=== PATIENT | female | born 1970 | race Caucasian/White ===

== ENCOUNTER 2021-12-31 07:42 | Emergency (ER) | payer MEDICAID, SELFPAY ==
[2021-12-31 07:43] VITALS: BP 139/96; PULSE 88; RESP 18; TEMP 36.6; O2SAT 100; BMI 21.6
--- NOTE | 2021-12-31 08:06 | EDS_ITS ---
HPI HPI - GI History of Present Illness Chief Complaint: Nausea/Vomiting Informant: patient Abdominal Pain/Flank Pain Onset: Yesterday Context: Gradual Onset Timing: Continuous Quality: - (Squeezing) Location: Epigastric, RUQ and LUQ Worsened by: Food Relieved by: Nothing Nausea/Vomiting/Emesis GI Symptom: Positive for Nausea and Vomiting Quality: Positive for Nonbilious; Negative for Blood streaks, Coffee ground or Hematemesis Severity: Severe Diarrhea/Melena/Hematochezia GI Symptom: Positive for Diarrhea; Negative for Melena or Hematochezia Associated Symptoms Associated Symptoms: Negative for Dysuria, Frequency or Hematuria Narrative Narrative: Patient presents with abdominal pain, nausea, and vomiting that began yesterday. Patient states she has had some abdominal pain over the last few weeks but it became worse last evening. Patient states it is over the epigastric area and upper abdomen. Patient states it feels like someone is squeezing her intestines. Patient states it is worse whenever she tries to eat anything. Patient admits to nausea and vomiting. Patient denies any hematemesis or coffee-ground emesis. Patient admits to diarrhea but denies any melena or hematochezia. Patient denies any dysuria, hematuria, or urinary frequency. Patient denies any radiation into her back. [facility] Medical History Anxiety Bipolar 1 disorder Migraine Panic attack PTSD (post-traumatic stress disorder) Home Medications alprazolam 0.5 mg tablet (Xanax) 0.5 mg PO TID PRN Anxiety 12/31/21 [History Last Taken Unknown] gwitoxpqfv-ekcokxzeyixbr-hlmudiko 50 mg-325 mg-40 mg tablet 2 tab PO Q4H PRN Migraine Headache 12/31/21 [History Last Taken Unknown] cariprazine 1.5 mg capsule (Vraylar) 1.5 mg PO DAILY 12/31/21 [History Last Taken Unknown] fluoxetine 20 mg capsule (Prozac) 20 mg PO DAILY 12/31/21 [History Last Taken Unknown] lamotrigine 150 mg tablet (Lamictal) 150 mg PO DAILY 12/31/21 [History Last Taken Unknown] omeprazole 20 mg capsule,delayed release 20 mg PO DAILY #30 CAPSULES 12/31/21 [Rx Last Taken Unknown] trazodone 100 mg tablet 200 mg PO QHS 12/31/21 [History Last Taken Unknown] Allergy/AdvReac Type Severity Reaction Status Date / Time No Known Allergies Allergy Verified 12/31/21 07:46 Family History (Updated 12/31/21 @ 07:57 by Jimena Barcenas) Other Diabetes Hypertension Surgical History no surgical history no surgical history Social History Smoking Status: Current every day smoker tobacco type: e-cigarettes ROS ROS ED Constitutional Constitutional ED: Denies chills or fever(s) Eyes Eyes: Denies blurry vision or change in vision ENT ENT ED: Denies rhinorrhea or sore throat Cardiovascular Cardiovascular: Denies chest pain or palpitations Respiratory/Chest Respiratory/Chest: Denies cough or dyspnea Gastrointestinal Gastrointestinal: Reports abdominal pain, diarrhea, nausea and vomiting Genitourinary Genitourinary ED: Denies dysuria or hematuria Musculoskeletal Musculoskeletal: Denies back pain or neck pain Integumentary Denies abscess or rash Neurologic Neurologic: Denies headache(s) or weakness Allergic/Immunologic Allergic/Immunologic ED: Denies mouth swelling or urticaria EXAM Physical Exam Const Vital Signs: 12/31/21 07:43 12/31/21 10:34 Temperature 97.9 F Temperature Source Temporal Pulse Rate 88 68 Respiratory Rate 18 16 Blood Pressure 139/96 H 149/79 H Blood Pressure Mean 110 102 Pulse Ox 100 100 Oxygen Delivery Method Room Air Room Air Positive well nourished and well developed General Appearance ED: well developed HEENT Reports moist mucous membranes Neck supple and no JVD Resp normal respiratory effort and clear to auscultation bilaterally Cardio regular rate, regular rhythm and no murmurs GI normal to inspection, nondistended, normoactive bowel sounds Palpation: soft and tender epigastric, LUQ and RUQ; Negative for guarding or rebound tenderness present Extremity normal to inspection General Extremety ED: Negative for edema or tenderness General Extremity: Negative for edema Neuro oriented x3, CN's II-XII intact bilaterally and no sensory deficits noted Sensorium / Orientation: alert Motor Exam: strength 5/5 throughout Psych mental status grossly normal Skin no rashes or lesions noted MDM MDM MDM Narrative Medical decision making narrative: Patient was given IV fluids, morphine, and Zofran. CBC shows hemoglobin of 16.0 and hematocrit of 48.7. Comprehensive metabolic profile shows a creatinine of 1.06. There are no prior labs for comparison. Lactate was slightly elevated at 2.4. Urinalysis does not show any evidence of urinary tract infection or hematuria. Lipase was normal. CT scan of the abdomen and pelvis was obtained. There is no acute abnormality noted. This was interpreted by the radiologist and reviewed by myself. Patient is feeling better on reevaluation. Patient was advised of her findings. Patient was given a prescription for Prilosec. Patient was instructed to start with a bland diet and advance as tolerated. Patient was instructed to follow-up with her primary care physician in 3 to 5 days for reevaluation. Patient was instructed drink plenty of fluids. Patient understood and was agreeable with the plan. All questions were answered. Lab Data Attestation: I reviewed the patient's lab results. Labs: Laboratory Results - last 24 hr 12/31/21 12/31/21 12/31/21 07:55 07:55 08:15 WBC 6.9 RBC 5.14 Hgb 16.0 H Hct 48.7 H MCV 94.7 MCH 31.1 MCHC 32.9 RDW Std Deviation 43.8 RDW Coeff of Aiden 12.6 Plt Count 308 MPV 9.5 Immature Gran % (Auto) 0.400 Neut % (Auto) 67.7 Lymph % (Auto) 24.8 [place] % (Auto) 4.2 Eos % (Auto) 2.3 Baso % (Auto) 0.6 Absolute Neuts (auto) 4.6 Absolute Lymphs (auto) 1.70 Nucleated RBC % 0 Sodium 138 Potassium 3.4 L Chloride 101 Carbon Dioxide 29.0 Anion Gap 8 BUN 7 Creatinine 1.06 H Estim Creat Clear Calc 57.77 Est GFR (MDRD) Af Amer 71 Est GFR (MDRD) Non-Af 59 L BUN/Creatinine Ratio 6.6 L Glucose 143 H Lactic Acid 2.4 H* Calcium 10.2 H Total Bilirubin 0.50 AST 17 ALT 28 Alkaline Phosphatase 80 Total Protein 8.6 H Albumin 4.8 Globulin 3.8 Albumin/Globulin Ratio 1.3 Lipase 130 Urine Color Urine Clarity Urine pH Ur Specific Sigel Urine Protein Urine Glucose (UA) Urine Ketones Urine Occult Blood Urine Nitrite Urine Bilirubin Urine Urobilinogen Ur Leukocyte Esterase Urine RBC Urine WBC Ur Squamous Epith Cells Urine Bacteria Urine Mucus 09/11/22 09:15 WBC RBC Hgb Hct MCV MCH MCHC RDW Std Deviation RDW Coeff of Aiden Plt Count MPV Immature Gran % (Auto) Neut % (Auto) Lymph % (Auto) [place] % (Auto) Eos % (Auto) Baso % (Auto) Absolute Neuts (auto) Absolute Lymphs (auto) Nucleated RBC % Sodium Potassium Chloride Carbon Dioxide Anion Gap BUN Creatinine Estim Creat Clear Calc Est GFR (MDRD) Af Amer Est GFR (MDRD) Non-Af BUN/Creatinine Ratio Glucose Lactic Acid Calcium Total Bilirubin AST ALT Alkaline Phosphatase Total Protein Albumin Globulin Albumin/Globulin Ratio Lipase Urine Color Yellow Urine Clarity Clear Urine pH 6.5 Ur Specific Sigel 1.010 Urine Protein 30 H Urine Glucose (UA) Normal Urine Ketones Negative Urine Occult Blood 25 H Urine Nitrite Negative Urine Bilirubin Negative Urine Urobilinogen Normal Ur Leukocyte Esterase 25 H Urine RBC 0 SEEN Urine WBC 0 SEEN Ur Squamous Epith Cells 0 SEEN Urine Bacteria 0 SEEN Urine Mucus 0 SEEN Radiography Diagnostic Testing: Clinical Impression(s) from Imaging Studies Abdomen/Pelvis CT 12/31/21 08:09 IMPRESSION: No acute intra-abdominal process. Electronically Signed: Tonya Mendoza MD at 10:37 EDT , Discharge Plan Triage Chief Complaint: Nausea/Vomiting ED Provider: Vito Saavedra Dx/Rx/DC Orders Clinical Impression: Abdominal pain Instructions: ED Abdominal Pain Unkn Cause Fem Prescriptions: New omeprazole [omeprazole] 20 mg capsule,delayed release(DR/EC) 20 mg PO DAILY Qty: 30 0RF No Action lamotrigine [Lamictal] 150 mg Tablet 150 mg PO DAILY alprazolam [Xanax] 0.5 mg Tablet 0.5 mg PO TID PRN (Reason: Anxiety) trazodone 100 mg Tablet 200 mg PO QHS fluoxetine [Prozac] 20 mg Capsule 20 mg PO DAILY Vraylar 1.5 mg Capsule 1.5 mg PO DAILY vflyplqiim-ljrwfvukywxpi-oztt [Fioricet] 50-325-40 mg Tablet 2 tab PO Q4H PRN (Reason: Migraine Headache) Rx Instructions: do not exceed 6 tabs per 24 hrs Primary Care Provider: Care Physician,No Primary Referrals: Francisco Agarwal MD [Med Staff - Project Portfolio Analyst] - 3-5 Days NOT,DEFINED [Non-Staff] - Disposition Disposition: Home, Self Care
--- NOTE | 2021-12-31 08:09 | CT_ITS ---
STUDY: CT ABDOMEN AND PELVIS WITH CONTRAST REASON FOR EXAM: Female, 51 years old. Abdominal pain -- IV PO Contrast RADIATION DOSAGE (If Supplied By Facility): CTDIvol = ( 14.66 ) mGy, DLP = ( 582.99 ) mGycm TECHNIQUE: Transaxial images were obtained from the dome of the diaphragm to the symphysis pubis without oral contrast. Gastrografin and amp; 100mL Isovue 370 was administered. Sagittal and coronal images were reconstructed. Individualized dose optimization techniques were used for this CT. COMPARISON: None. FINDINGS: The visualized lung bases are unremarkable. The visualized portions of the heart are within normal limits. There is a low-attenuation focus within segment 4 the liver adjacent to the falciform ligament consistent with focal fat. Normal gallbladder and extrahepatic biliary system. There is a too small to characterize low-attenuation focus within the spleen which may reflect a cyst or hemangioma. Normal pancreas. Normal bilateral adrenal glands. Normal right kidney. Normal left kidney. Normal visualized stomach. Normal small intestine. There are scattered diverticula arising from the colon. The appendix is visualized and appears normal. Normal abdominal aorta. Normal inferior vena cava. Normal retroperitoneum. Normal urinary bladder. Normal abdominal wall. Normal osseous structures. CT/Abdomen/Pelvis WITH Contrast IMPRESSION: No acute intra-abdominal process. Electronically Signed: Tonya Mendoza MD at 10:37 EDT ,
[2021-12-31] MEDS: Ondansetron 4 MG/2 ML Vial IV (08:15)
[2021-12-31] MEDS: Morphine 4 MG/ML Syringe IV (08:15)
[2021-12-31] MEDS: 0.9% Normal Saline 1,000 ML 1000 ML IV (08:16)
[2021-12-31 08:26] LABS: Absolute Neutrophil Count 4.6 X10^3/uL (2.0-7.7); Basophil# 0.04 X10^3/uL; Basophil% 0.6 % (0-1); Eosinophil# 0.16 X10^3/uL; Eosinophils% 2.3 % (0-5); Hematocrit 48.7 % (37-47); Lymphocyte % 24.8 % (19-41); Mean Corp Hgb Conc 32.9 g/dL (32-36); Mean Corpuscular Hgb 31.1 pg (27.0-32.0); Mean Corpuscular Volume 94.7 fL (81-99); Mean Platelet Vol. 9.5 fl (6.2-12.0); Monocyte# 0.29 X10^3/uL; Monocyte% 4.2 % (0-10); NRBC Flagged by Analyzer 0 % (0-5); Neutrophil # 4.63 X10^3/uL (2.7-7.7); Neutrophil % 67.7 % (47-70); Platelet Count 308 K/mm3 (150-450); RBC Distribution Width CV 12.6 % (11.6-14.6); RBC Distribution Width SD 43.8 fl (35.1-43.9); Red Blood Count 5.14 M/mm3 (4.2-5.4); White Blood Count 6.9 K/mm3 (4.4-11.0)
[2021-12-31 08:34] LABS: ALB/GLOB Ratio 1.3 RATIO (0.9-2.4); AST(SGOT) 17 U/L (15-37); Alanine Aminotransfer ALT/SGPT 28 U/L (13-56); Albumin, Serum 4.8 g/dL (3.2-5.0); Alkaline Phosphatase 80 U/L (45-117); Anion Gap 8 (5-15); BUN 7 mg/dL (7-18); BUN/Creat Ratio 6.6 RATIO (10-20); Calcium,Total 10.2 mg/dL (8.5-10.1); Chloride 101 mmol/L (98-107); Creatinine, Serum 1.06 mg/dL (0.55-1.02); EST Glomerular Filtration Rate 59 mL/min (>60); Est Glom Filt Rate - Afr Amer 71 mL/min (>60); Estimated Creatinine Clearance 57.77 ml/min; Globulin 3.8 g/dL (2.2-4.2); Glucose 143 mg/dL (74-106); Lipase 130 U/L (73-393); Potassium 3.4 mmol/L (3.5-5.1); Protein, Total 8.6 g/dL (6.4-8.2); Sodium Level 138 mmol/L (136-145)
[2021-12-31 09:11] LABS: Lactic Acid 2.4 mmol/L (0.4-1.9)
[2021-12-31 09:26] LABS: Bacteria 0 SEEN /hpf (None Seen); Mucous, Urine 0 SEEN /hpf (<or=2+); Red Blood Cells-Urine 0 SEEN /hpf (0-5); Squamous Epithelial Cells - UA 0 SEEN /hpf (5-10); White Blood Cells 0 SEEN /hpf (0-5)
[2021-12-31 09:39] LABS: Color, Urine Yellow (Yellow); Glucose, Dipstick Normal (Normal); Ketone-Dipstick Negative (Negative); Leukocyte Esterase-Dipstick 25 /ul (Negative); Nitrite-Dipstick Negative (Negative); Occult Blood-Urine 25 /ul (Negative); Protein-Dipstick 30 mg/dl (Negative); Urine Bilirubin Dipstick Negative (Negative); Urine Clarity Clear (Clear); Urine Urobilinogen Normal (Normal); Urine pH 6.5 (5.0 - 8.0)
[2021-12-31 10:34] VITALS: BP 149/79; PULSE 68; RESP 16; O2SAT 100
[2021-12-31 12:25] LABS: Reflex Lactate? Y
== END 2021-12-31 11:49 | disposition home or self-care (01) ==
PROVIDERS: Emergency Provider Emergency Medicine; Visit Provider Emergency Medicine
DX: R10.9 Unspecified abdominal pain (principal); R11.2 Nausea with vomiting, unspecified; F17.290 Nicotine dependence, other tobacco product, uncomplicated; F41.9 Anxiety disorder, unspecified; F43.10 Post-traumatic stress disorder, unspecified; Z79.899 Other long term (current) drug therapy
CPT/HCPCS: 74177; 80053; 81001; 83605; 83690; 85025; 96374; 96375; 99283; J7030; Q9967; A4216; J2405

== ENCOUNTER 2022-06-08 07:17 | Emergency (ER) | payer MEDICAID, SELFPAY ==
[2022-06-08 07:17] VITALS: BP 120/79; PULSE 79; RESP 18; TEMP 35.7; O2SAT 100; BMI 20.7
--- NOTE | 2022-06-08 07:35 | RAD_ITS ---
STUDY: X-RAY CHEST REASON FOR EXAM: Female, 51 years old. Cough left-sided chest pain TECHNIQUE: PA and lateral views of the chest. COMPARISON: None. FINDINGS: The lungs are clear and expanded. There is no demonstrated pleural abnormality. Normal size heart. Normal mediastinum and kemar. Normal visualized pulmonary arteries. There is atherosclerotic calcification of the aortic arch. There is an increased kyphosis of the thoracic spine. There is a levoscoliosis of the thoracic spine. There is degenerative change of the spine. Normal visualized ribs, clavicles, and shoulders. There is no demonstrated abnormality of the visualized soft tissue structures of the upper abdomen. RAD/Chest PA and Lateral IMPRESSION: Degenerative changes, as described above. No demonstrated acute cardiopulmonary process. Electronically Signed: Apolinar Jessica MD at 8:47 EST ,
[2022-06-08] MEDS: Naproxen 250 MG Tablet 500 MG PO (07:44)
--- NOTE | 2022-06-08 07:47 | ED.VIS.CHEST ---
HPI History of Present Illness Chief Complaint: Chest Other Detail of Chief Complaint: Left-sided pain under left breast Informant: patient Onset/Context/Timing Onset: Yesterday Activity at onset: sudden Timing: Continuous and Waxes and wanes Quality: Positive for Aching Location: Left Chest Current Severity: Mild Maximum Severity: Severe Worsened By: Movement of Arm, Movement of Torso, Palpation, Breathing and Coughing Relieved By: Nothing Associated Symptoms: Positive for Cough; Negative for Nausea, Vomiting, Diaphoresis, Dyspnea, Fever, Lightheadedness, Acid Reflux or Palpitations Narrative Narrative: Patient is a 51-year-old woman who presents with left-sided chest pain after coughing. This started yesterday. She was a smoker until a couple years ago. She states she now vapes. Prior Similar Symptoms: No Recent Illness/Hospitalization: No CVD Risk Factors: Positive for Smoking; Negative for Hypertension, Diabetes, Hypercholesterolemia or Family History 1' </=55 PE Risk Factors: Negative for Recent Travel/Surgery, Recent Immobilization, Prior DVT or PE, Cancer or OCP + Smoking + >/=35 TAD Risk Factors: Negative for Marfan's Syndrome, Hypertension or Family History PFSH [facility] Medical History Anxiety Bipolar 1 disorder Migraine Panic attack PTSD (post-traumatic stress disorder) Home Medications alprazolam 0.5 mg tablet (Xanax) 0.5 mg PO TID PRN Anxiety 12/31/21 [History Last Taken Unknown] oxsysgufoa-mpnqxoligqexp-rklrsjnu 50 mg-325 mg-40 mg tablet 2 tab PO Q4H PRN Migraine Headache 12/31/21 [History Last Taken Unknown] cariprazine 1.5 mg capsule (Vraylar) 1.5 mg PO DAILY 12/31/21 [History Last Taken Unknown] fluoxetine 20 mg capsule (Prozac) 20 mg PO DAILY 12/31/21 [History Last Taken Unknown] lamotrigine 150 mg tablet (Lamictal) 150 mg PO DAILY 12/31/21 [History Last Taken Unknown] omeprazole 20 mg capsule,delayed release 20 mg PO DAILY #30 CAPSULES 12/31/21 [Rx Last Taken Unknown] trazodone 100 mg tablet 200 mg PO QHS 12/31/21 [History Last Taken Unknown] hydrocodone-homatropine 5 mg-1.5 mg/5 mL oral syrup (Hycodan (with homatropine)) 5 ml PO Q6H PRN cough 3 days #60 mL 06/08/22 [Rx Last Taken Unknown] naproxen 500 mg tablet 500 mg PO BID #14 tabs 06/08/22 [Rx Last Taken Unknown] Allergy/AdvReac Type Severity Reaction Status Date / Time No Known Allergies Allergy Verified 06/08/22 07:18 Family History (Updated 12/31/21 @ 07:57 by Jimena Barcenas) Other Diabetes Hypertension Social History Smoking Status: Current every day smoker tobacco type: e-cigarettes ROS ROS ED Constitutional Constitutional ED: Denies chills, fever(s), subjective, sweats or weight loss Eyes Eyes: Reports none ENT ENT ED: Denies ear pain, rhinorrhea or sore throat Cardiovascular Cardiovascular: Reports as per HPI and chest pain; Denies orthopnea, palpitations, paroxysmal nocturnal dyspnea or racing heartbeat Respiratory/Chest Respiratory/Chest: Reports cough; Denies dyspnea, dyspnea on exertion, orthopnea or paroxysmal nocturnal dyspnea Gastrointestinal Gastrointestinal: Denies abdominal pain, nausea or vomiting Genitourinary Genitourinary ED: Denies dysuria, hematuria or urinary frequency Musculoskeletal Musculoskeletal: Denies arthralgias, back pain, myalgias or neck pain Neurologic Neurologic: Denies headache(s), paresthesias or weakness Hematologic/Lymphatic Hematologic/Lymphatic: Denies easy bleeding or easy bruising EXAM Physical Exam Const Vital Signs: 06/08/22 07:17 Temperature 96.2 F L Temperature Source Temporal Pulse Rate 79 Respiratory Rate 18 Blood Pressure 120/79 Blood Pressure Mean 92 Pulse Ox 100 Oxygen Delivery Method Room Air Positive well nourished, well developed and cachectic General Appearance ED: well developed and cachectic Nutritional Appearance: cachectic HEENT Reports TM's clear and moist mucous membranes HEENT Narrative: Nares patent. Posterior pharynx out erythema or exudate. Uvula midline. normocephalic and atraumatic Tympanic Membrane ED: Yes TM's clear Eyes PERRL General Eye ED: Negative for pale conjunctiva or scleral icterus Neck no lymphadenopathy, supple and no JVD Neck Narrative: Trachea is midline Chest Wall inspection of chest normal and palpation of chest normal Chest Narrative: There is no crepitus or subcutaneous air. Patient has pain from the midclavicular line to the posterior axillary line ribs 5, 6 7 on the left. Resp normal respiratory effort and clear to auscultation bilaterally Resp Narrative: Breath sounds are symmetric. Effort and Inspection: pain with movement; Negative for respiratory distress Auscultation: diminished lung sounds; Negative for rales, rhonchi or wheezes Cardio regular rate, regular rhythm, S1 normal heart sound, S2 normal heart sound and no murmurs GI normal to inspection, nondistended, normoactive bowel sounds, soft to palpation, non-tender, non-distended and no masses; Negative for hepatosplenomegaly Back/Spine no CVA tenderness and no thoracic nor lumbar tenderness Extremity normal to inspection Extremity Narrative: There is no asymmetry, swelling, discoloration, leg vein distention, palpable cords or tenderness along the distribution of the deep venous system. Neuro oriented x3, CN's II-XII intact bilaterally and gait normal Sensorium / Orientation: awake and alert Psych mental status grossly normal Skin no rashes or lesions noted and no wounds MDM MDM MDM Narrative Medical decision making narrative: Patient presents with chest pain after coughing. This may represent pleurisy, pneumonia, fractured rib. Will obtain chest x-ray to assess for fracture versus pneumonia. Patient was medicated with NSAIDs and she has no contraindication. Prior records were reviewed. She does have history of GERD and anxiety with depression. There is no history of spontaneous pneumothorax. Radiography Chest X-Ray - ED: 2 View and Read by ED Physician (Minimal chronic changes with hyper aeration. No evidence of effusion, infiltrate or pneumothorax. Cardiac silhouette and size unremarkable. Perihilar region unremarkable. Osseous structures are unremarkable.) Diagnostic Testing: Clinical Impression(s) from Imaging Studies Chest X-Ray 06/08/22 07:35 IMPRESSION: Degenerative changes, as described above. No demonstrated acute cardiopulmonary process. Electronically Signed: Apolinar Jessica MD at 8:47 EST , Rhythm Strip Rhythm Strip: Sinus Rhythm Rate: 75 Ectopy: None Treatment and Re-Evaluation Narrative: Patient was reassessed after her chest x-ray. Patient still appears in discomfort. Patient was reassessed at 0927. She was informed of her test results. She was discharged home with prescription for NSAID and opiate analgesia as cough suppressant. Discharge Plan Triage Chief Complaint: Chest Other ED Provider: Lowell Jesus Dx/Rx/DC Orders Clinical Impression: Left-sided chest wall pain, Upper respiratory infection with cough and congestion, Electronic cigarette use, Hx of gastroesophageal reflux (GERD) Instructions: ED Chest Wall Strain Prescriptions: New naproxen 500 mg tablet 500 mg PO BID Qty: 14 0RF hydrocodone-homatropine [Hycodan (with homatropine)] 5-1.5 mg/5 mL syrup 5 ml PO Q6H PRN (Reason: cough) 3 Days Qty: 60 0RF No Action lamotrigine [Lamictal] 150 mg Tablet 150 mg PO DAILY alprazolam [Xanax] 0.5 mg Tablet 0.5 mg PO TID PRN (Reason: Anxiety) trazodone 100 mg Tablet 200 mg PO QHS fluoxetine [Prozac] 20 mg Capsule 20 mg PO DAILY Vraylar 1.5 mg Capsule 1.5 mg PO DAILY vkhfuccuzy-kpdhkycbbyizr-fpdz [Fioricet] 50-325-40 mg Tablet 2 tab PO Q4H PRN (Reason: Migraine Headache) Rx Instructions: do not exceed 6 tabs per 24 hrs omeprazole [omeprazole] 20 mg capsule,delayed release(DR/EC) 20 mg PO DAILY Qty: 30 0RF Primary Care Provider: ROGER FRANK Referrals: ROGER FRANK [Other] - 1 Week if not improving Disposition Disposition: Home, Self Care
[2022-06-08 10:05] VITALS: RESP 18
== END 2022-06-08 10:05 | disposition home or self-care (01) ==
PROVIDERS: Emergency Provider Emergency Medicine; Visit Provider Emergency Medicine
DX: J06.9 Acute upper respiratory infection, unspecified (principal); R07.89 Other chest pain; F17.290 Nicotine dependence, other tobacco product, uncomplicated
CPT/HCPCS: 71046; 99282

== ENCOUNTER 2022-09-08 09:08 | Emergency (ER) | payer MEDICAID, SELFPAY ==
[2022-09-08 09:09] VITALS: BP 144/95; PULSE 80; RESP 16; TEMP 36.4; O2SAT 100; BMI 20.9
--- NOTE | 2022-09-08 09:25 | US_ITS ---
INDICATION: Pain EXAMINATION: Ultrasound US Abdomen Limited (quadrant) TECHNIQUE: Boston scale and color doppler imaging was performed of the right upper quadrant. COMPARISON: CT dated December 31, 2021 FINDINGS: LIVER: The liver is within normal limits. No focal hepatic lesion. There is no free fluid. GALLBLADDER AND BILIARY TREE: No shadowing gallstone, pericholecystic fluid or gallbladder wall thickening is demonstrated. The proximal common bile duct measures 4.4 mm, which is within normal limits for the patient''s age. Songraphic Galindo''s sign: Negative. PANCREAS: No focal abnormality is demonstrated in the pancreas. No pancreatic ductal dilatation. RIGHT KIDNEY: The right kidney measures 10.7 cm in length. There is mild right-sided hydronephrosis. US/Gallbladder IMPRESSION: Right-sided hydronephrosis. Electronically Signed: Tonya Mendoza MD at 10:17 EDT ,
--- NOTE | 2022-09-08 09:26 | EDS_ITS ---
HPI HPI - GI History of Present Illness Chief Complaint: Abd Pain Narrative Narrative: 52-year-old female presenting with right upper quadrant abdominal pain. She states this started about 3 days ago. She states she usually drinks smoothies and eats a very healthy diet. She also states she can go a whole day without eating food. She states she was out of bar having a good time and decided a corn dog and some [place] fries and this is when the pain really started. Its been intermittent over the course of days. She cannot really tell me if it gets worse with food. She has had some nausea and vomiting. No diarrhea or constipation. No urinary or vaginal complaints. Patient has no history of gallstones. No fevers or chills. PFSH PFS Medical History Anxiety Bipolar 1 disorder Migraine Panic attack PTSD (post-traumatic stress disorder) Home Medications bupropion HCl 300 mg 24 hr tablet, extended release 300 mg PO DAILY 09/08/22 [History Last Taken Unknown] clonazepam 0.5 mg tablet 0.5 mg PO TID PRN Anxiety 09/08/22 [History Last Taken Unknown] ondansetron 4 mg disintegrating tablet 4 mg PO Q8H PRN PRN Nausea #14 tabs 09/08/22 [Rx Last Taken Unknown] pantoprazole 40 mg tablet,delayed release 40 mg PO DAILY 09/08/22 [History Last Taken Unknown] polyethylene glycol 3350 17 gram/dose oral powder (Miralax) 17 g PO DAILY PRN constipation #119 grams 09/08/22 [Rx Last Taken Unknown] sucralfate 100 mg/mL oral suspension (Carafate) 10 ml PO BID PRN pain #400 mL 09/08/22 [Rx Last Taken Unknown] Allergy/AdvReac Type Severity Reaction Status Date / Time No Known Allergies Allergy Verified 09/08/22 09:11 Family History Other Diabetes Hypertension Social History Smoking Status: Current every day smoker tobacco type: e-cigarettes ROS ROS ED Constitutional Constitutional ED: Denies chills, fever(s) or sweats Eyes Eyes: Denies blurry vision or change in vision ENT ENT ED: Denies ear pain or sore throat Cardiovascular Cardiovascular: Denies chest pain, palpitations or racing heartbeat Respiratory/Chest Respiratory/Chest: Denies cough, dyspnea or sputum Gastrointestinal Gastrointestinal: Reports abdominal pain, nausea and vomiting; Denies constipation or diarrhea Genitourinary Genitourinary ED: Denies dysuria, hematuria or urinary frequency Musculoskeletal Musculoskeletal: Denies arthralgias, myalgias or neck pain Integumentary Denies abscess, Abrasions or rash Neurologic Neurologic: Denies headache(s), paresthesias or weakness Psychiatric Psychiatric: Denies anxiety, depression, suicidal ideation or suicidal thoughts Endocrine Endocrinology: Denies polydipsia or polyuria EXAM Physical Exam Const Vital Signs: 09/08/22 09:09 09/08/22 13:45 Temperature 97.6 F L Temperature Source Temporal Pulse Rate 80 53 L Respiratory Rate 16 Blood Pressure 144/95 H 174/92 H Blood Pressure Mean 111 119 Pulse Ox 100 Oxygen Delivery Method Room Air Positive well nourished General Appearance ED: NAD; Negative for pallor HEENT Reports moist mucous membranes normocephalic and atraumatic Eyes EOMs intact bilaterally General Eye ED: Negative for pale conjunctiva or scleral icterus Resp normal respiratory effort and clear to auscultation bilaterally Cardio regular rate and regular rhythm GI Palpation: tender RLQ and Galindo's sign Back/Spine no CVA tenderness Neuro CN's II-XII intact bilaterally Sensorium / Orientation: alert and oriented to person Psych mental status grossly normal and thought process normal Skin General Skin Exam: Negative for jaundice or pallor MDM MDM MDM Narrative Medical decision making narrative: Patient presenting with right upper quadrant pain. She has a positive Galindo sign. Is ongoing for about 3 days intermittently. She states that she ate fried food 3 days ago before it started. Differential includes cholecystitis, cholelithiasis, choledocholithiasis, pancreatitis, colitis, gastritis, pyelonephritis, UTI. Patient was medicated with 4 mg of morphine, 4 mg of Zofran, given a liter of normal saline. CBC to assess white blood cell count, hemoglobin, platelets, differential. BMP to assess renal function, electrolytes, glucose, anion gap. Liver panel to assess for liver enzyme elevation. Lipase to assess for pancreatitis. Urinalysis to assess for UTI. We will start with a right upper quadrant ultrasound given the patient's positive Galindo sign. Ultrasound was ultimately negative for gallstones. Patient came back to the ER and was in a lot of pain and was given a second dose of morphine. Her CBC, CMP, lipase are all within normal limits. The ultrasound of the right upper quadrant did say that the patient had right-sided hydronephrosis so I obtained a CT scan and this did not show hydronephrosis but it did show an indeterminate tubular high attention focus within the right adnexal region and recommended ultrasound of the pelvis. This was obtained and the ultrasound of the pelvis shows a complex ovarian cyst and it was interpreted as cannot rule out endometriosis. Clinically she does not have any pain down and there. I reevaluated her pain is still in the right upper quadrant. I did consider intermittent torsion however versus torsion. Discussed the patient with Dr. Luevano who reviewed the imaging. It is clear that she does have a lot of stool throughout her colon. He he stated that the patient could not go home that he could start a bowel regimen for her in the hospital. He also gave the option for outpatient follow-up and the patient did not want to be admitted. I started her on MiraLAX for home. Dr. Luevano recommended a PPI and Carafate as it is possible that the patient could have a duodenal ulcer with duodenitis. Patient discharged in stable condition. Return precautions were discussed. Impression: 1. Right upper quadrant abdominal pain 2. Nausea 3. Constipation Lab Data Attestation: I reviewed the patient's lab results. Labs: Laboratory Results - last 24 hr 09/08/22 09/08/22 09/08/22 09:27 09:27 09:30 WBC 5.0 RBC 4.35 Hgb 13.9 Hct 40.0 MCV 92.0 MCH 32.0 MCHC 34.8 RDW Std Deviation 40.3 RDW Coeff of [place]iden 11.9 Plt Count 228 MPV 9.4 Immature Gran % (Auto) 0.400 Neut % (Auto) 68.4 Lymph % (Auto) 23.6 [place] % (Auto) 4.8 Eos % (Auto) 2.2 Baso % (Auto) 0.6 Absolute Neuts (auto) 3.4 Absolute Lymphs (auto) 1.18 Nucleated RBC % 0 Sodium 141 Potassium 4.1 Chloride 104 Carbon Dioxide 27.0 Anion Gap 10 BUN 14 Creatinine 0.78 Estim Creat Clear Calc 77.64 Est GFR (MDRD) Af Amer 100 Est GFR (MDRD) Non-Af 83 BUN/Creatinine Ratio 17.9 Glucose 103 Calcium 9.9 Total Bilirubin 0.40 Direct Bilirubin 0.16 AST 26 ALT 43 Alkaline Phosphatase 84 Total Protein 7.0 Albumin 4.1 Globulin 2.9 Lipase 41 Urine Color Yellow Urine Clarity Clear Urine pH 6.5 Ur Specific [place] 1.010 Urine Protein Negative Urine Glucose (UA) Normal Urine Ketones Negative Urine Occult Blood 10 H Urine Nitrite Negative Urine Bilirubin Negative Urine Urobilinogen Normal Ur Leukocyte Esterase 25 H Urine RBC 0 SEEN Urine WBC 0-5 SEEN Ur Squamous Epith Cells 0-5 SEEN Urine Bacteria 0 SEEN Urine Mucus 0 SEEN Radiography Diagnostic Testing: Clinical Impression(s) from Imaging Studies Gallbladder Ultrasound 09/08/22 09:25 IMPRESSION: Right-sided hydronephrosis. Electronically Signed: Tonya Mendoza MD at 10:17 EDT , Abdomen/Pelvis CT 09/08/22 10:06 IMPRESSION: Moderate amount of stool throughout the colon and rectum associated with rectal distention. Indeterminate tubular high attenuation focus within the right adnexal region, recommend pelvic ultrasound for further characterization. Electronically Signed: Tonya Mendoza MD at 10:54 EDT , Discharge Plan Triage Chief Complaint: Abd Pain ED Provider: William Mejias Dx/Rx/DC Orders Instructions: ED Constipation (Adult), ED Abdominal Pain Unkn Cause Male... Prescriptions: New sucralfate [Carafate] 100 mg/mL suspension 10 ml PO BID PRN (Reason: pain) Qty: 400 0RF ondansetron 4 mg tablet,disintegrating 4 mg PO Q8H PRN PRN (Reason: Nausea) Qty: 14 0RF polyethylene glycol 3350 [Miralax] 17 gram/dose powder 17 g PO DAILY PRN (Reason: constipation) Qty: 119 0RF No Action clonazepam 0.5 mg tablet 0.5 mg PO TID PRN (Reason: Anxiety) Label Comments: TAKE ONE-HALF TO ONE TABLET BY MOUTH UP TO THREE TIMES DAILY NEEDED FOR ANXIETY/ WITHDRAWAL SYMPTOMS pantoprazole 40 mg tablet,delayed release (DR/EC) 40 mg PO DAILY Label Comments: TAKE 1 TABLET BY MOUTH ONCE DAILY 30 MINUTES BEFORE EATING bupropion HCl 300 mg tablet extended release 24 hr 300 mg PO DAILY Label Comments: TAKE 1 TABLET BY MOUTH ONCE DAILY Primary Care Provider: ROGER MAGUIRE [employer] MANAGER Referrals: ROGER FRANK [Other] Remberto Luevano MD [Med Staff - Active Staff] - As soon as possible Disposition Disposition: Home, Self Care Discharge Date/Time: 09/08/22 14:42
[2022-09-08] MEDS: 0.9% Normal Saline 1,000 ML 1000 ML IV (09:33)
[2022-09-08] MEDS: Ondansetron 4 MG/2 ML Vial IV (09:34)
[2022-09-08] MEDS: Morphine 4 MG/ML Syringe IV ×3 (09:34→13:50)
[2022-09-08 09:44] LABS: Bacteria 0 SEEN /hpf (None Seen); Mucous, Urine 0 SEEN /hpf (<or=2+); Red Blood Cells-Urine 0 SEEN /hpf (0-5)
[2022-09-08 09:47] LABS: Absolute Lymphocyte Count 1.18 X10^3/uL (0.83-4.51); Absolute Neutrophil Count 3.4 X10^3/uL (2.0-7.7); Basophil# 0.03 X10^3/uL; Basophil% 0.6 % (0-1); Eosinophil# 0.11 X10^3/uL; Eosinophils% 2.2 % (0-5); Hemoglobin 13.9 g/dL (12.0-15.0); Lymphocyte # 1.18 X10^3/ul (0.83-4.51); Lymphocyte % 23.6 % (19-41); Mean Corp Hgb Conc 34.8 g/dL (32-36); Mean Platelet Vol. 9.4 fl (6.2-12.0); Monocyte# 0.24 X10^3/uL; Monocyte% 4.8 % (0-10); NRBC Flagged by Analyzer 0 % (0-5); Neutrophil # 3.42 X10^3/uL (2.7-7.7); Neutrophil % 68.4 % (47-70); Platelet Count 228 K/mm3 (150-450); RBC Distribution Width CV 11.9 % (11.6-14.6); RBC Distribution Width SD 40.3 fl (35.1-43.9); Red Blood Count 4.35 M/mm3 (4.2-5.4)
[2022-09-08 09:48] LABS: Color, Urine Yellow (Yellow); Glucose, Dipstick Normal (Normal); Ketone-Dipstick Negative (Negative); Leukocyte Esterase-Dipstick 25 /ul (Negative); Nitrite-Dipstick Negative (Negative); Occult Blood-Urine 10 /ul (Negative); Protein-Dipstick Negative (Negative); Urine Bilirubin Dipstick Negative (Negative); Urine Clarity Clear (Clear); Urine Urobilinogen Normal (Normal); Urine pH 6.5 (5.0 - 8.0)
[2022-09-08 09:56] LABS: Squamous Epithelial Cells - UA 0-5 SEEN /hpf (5-10); White Blood Cells 0-5 SEEN /hpf (0-5)
[2022-09-08 10:04] LABS: AST(SGOT) 26 U/L (15-37); Alanine Aminotransfer ALT/SGPT 43 U/L (13-56); Albumin, Serum 4.1 g/dL (3.2-5.0); Alkaline Phosphatase 84 U/L (45-117); Anion Gap 10 (5-15); BUN 14 mg/dL (7-18); BUN/Creat Ratio 17.9 RATIO (10-20); Bilirubin, Direct 0.16 mg/dL (0.00-0.30); Calcium,Total 9.9 mg/dL (8.5-10.1); Chloride 104 mmol/L (98-107); Creatinine, Serum 0.78 mg/dL (0.55-1.02); EST Glomerular Filtration Rate 83 mL/min (>60); Est Glom Filt Rate - Afr Amer 100 mL/min (>60); Estimated Creatinine Clearance 77.64 ml/min; Globulin 2.9 g/dL (2.2-4.2); Glucose 103 mg/dL (74-106); Lipase 41 U/L (13-75); Potassium 4.1 mmol/L (3.5-5.1); Sodium Level 141 mmol/L (136-145)
--- NOTE | 2022-09-08 10:06 | CT_ITS ---
STUDY: CT ABDOMEN AND PELVIS WITH CONTRAST - URINARY TRACT REASON FOR EXAM: Female, 52 years old. Right upper quadrant pain RADIATION DOSAGE (If Supplied By Facility): CTDIvol = ( 13.63 ) mGy, DLP = ( 489.88 ) mGycm TECHNIQUE: IV 100mL Isovue-300 was administered. Transaxial images were obtained from the dome of the diaphragm to the symphysis pubis in the arterial, nephrographic and excretory phases. Multiplanar coronal and sagittal images were reformatted. Individualized Dose Optimization Techniques Were Used For This CT. COMPARISON: December 31, 2021 FINDINGS: The visualized lung bases are unremarkable. The visualized portions of the heart are within normal limits. Normal liver. Normal gallbladder and extrahepatic biliary system. There is a stable too small to characterize low-attenuation focus within the spleen which may reflect a cyst or hemangioma.. Normal pancreas. Normal bilateral adrenal glands. Normal visualized stomach. Normal small intestine. There is a large amount of stool throughout the colon in rectum associated with rectal distention. The appendix is visualized and appears normal. Normal abdominal aorta. No retroperitoneal adenopathy. Normal right kidney. Normal left kidney. Within the right adnexal region there is a tubular partially calcified high attenuation focus is stable. Normal urinary bladder. Normal abdominal wall. Normal osseous structures. CT/Abdomen/Pelvis W IV Cont ONLY IMPRESSION: Moderate amount of stool throughout the colon and rectum associated with rectal distention. Indeterminate tubular high attenuation focus within the right adnexal region, recommend pelvic ultrasound for further characterization. Electronically Signed: Tonya Mendoza MD at 10:54 EDT ,
--- NOTE | 2022-09-08 11:02 | US_ITS ---
INDICATION: Abnormal CT EXAMINATION: Ultrasound US Pelvis Non OB Complete With Transvaginal Imaging TECHNIQUE: Transabdominal and transvaginal pelvic ultrasound was performed. Grayscale, spectral waveform, and color flow Doppler evaluation of the adnexa. COMPARISON: CT dated June 11, 2022. FINDINGS: UTERUS: The uterus measures 7.1 x 3.1 x 5.7 cm. There is an intramural hypoechoic 1.0 x 1.0 x 0.7 cm round focus within the uterine fundus. The endometrial stripe measures 6.3 mm in AP diameter which is thickened for postmenopausal patient. RIGHT OVARY: 4.2 x 2.9 x 3.1 cm. There are two complex cystic foci within the right ovary the larger containing peripheral calcifications and measuring 2.0 x 2.3 x 2.1 cm. A smaller cystic focus measures 1.5 x 2.2 x 2.0 cm. There is normal arterial inflow and venous outflow present in the right ovary. LEFT OVARY: 2.4 x 2.0 x 3.7 cm. Non-enlarged, normal echogenicity. There is a 2.3 x 0.9 x 1.2 cm simple appearing cyst. There is normal arterial inflow and venous outflow present in the left ovary. FREE FLUID: None. US/Pelvic w/ Transvaginal IMPRESSION: Abnormally thickened endometrial stripe. Enlarged right ovary secondary to two complex cystic foci which may reflect endometriomas or hemorrhagic cysts, recommend follow-up ultrasound in 8-10 weeks to assess for stability. Uterine fibroid. Electronically Signed: Tonya Mendoza MD at 12:49 EDT ,
[2022-09-08 13:45] VITALS: BP 174/92; PULSE 53
[2022-09-08] MEDS: Mag Hydrox/Al Hydrox/Simeth 30 ML UDC PO (14:32)
== END 2022-09-08 14:42 | disposition home or self-care (01) ==
PROVIDERS: Emergency Provider Student in an Organized Health Care Education/Training Program; Visit Provider Student in an Organized Health Care Education/Training Program
DX: R10.11 Right upper quadrant pain (principal); K59.00 Constipation, unspecified; R11.0 Nausea; F41.9 Anxiety disorder, unspecified; Z79.899 Other long term (current) drug therapy; F17.290 Nicotine dependence, other tobacco product, uncomplicated
CPT/HCPCS: 74177; 76705; 76830; 76856; 80048; 80076; 81001; 83690; 85025; 96361; 96374; 96375; 96376; 99283; J7030; Q9967; A4216; J2405

== ENCOUNTER 2023-09-07 17:53 | Emergency (ER) | payer OTHER, SELFPAY ==
[2023-09-07 17:53] VITALS: BP 131/90; PULSE 89; RESP 16; TEMP 36.2; O2SAT 99; BMI 22.2
[2023-09-07 17:56] VITALS: BP 131/90; PULSE 89; RESP 16; TEMP 36.2; O2SAT 99
--- NOTE | 2023-09-07 18:25 | EX.ED.DYSGE1 ---
HPI History of Present Illness Chief Complaint: Cellulitis Narrative Narrative: 53-year-old female presenting with a rash on her right forearm. She states that last week she noticed that on the elbow thought she had a bug bite and was put on antibiotics and took Keflex 4 times a day for a week and that basically went away and now she notes she has a rash on the elbow and forearm. Is starting to be a little bit weepy on the volar surface and there are some vesicles forming and now she notes there is some other rash forming on her left cheek and on her forehead. She states she has not been outdoors but she thought she was bitten by another bug. The only thing she can think of is walking the dog but denies being bitten at that time. Patient states the rash is itchy and not painful. Denies fevers, chills. Denies any trauma. No new soaps, dyes, detergents, linens etc. PFSH PFSH Medical History Migraine PTSD (post-traumatic stress disorder) Panic attack Anxiety Bipolar 1 disorder Home Medications ?Medication ?Instructions ?Recorded ?Last Taken ?Type bupropion HCl 300 mg 24 hr tablet, 300 mg PO DAILY 09/08/22 Unknown History extended release pantoprazole 40 mg tablet,delayed 40 mg PO DAILY 09/08/22 Unknown History release bupropion HCl 150 mg 24 hr tablet, 150 mg PO DAILY 09/07/23 Unknown History extended release prednisone 10 mg tablet 10 mg PO DAILY #63 tabs 09/07/23 Unknown Rx varenicline 1 mg tablet 1 mg PO BID 09/07/23 Unknown History Allergy/AdvReac Type Severity Reaction Status Date / Time No Known Allergies Allergy Verified 09/07/23 17:57 Family History Other Diabetes Hypertension Social History Smoking Status: Former smoker ROS ROS ED Constitutional Constitutional ED: Denies chills, fever(s) or sweats Eyes Eyes: Denies blurry vision or change in vision ENT ENT ED: Denies ear pain or sore throat Cardiovascular Cardiovascular: Denies chest pain, palpitations or racing heartbeat Respiratory/Chest Respiratory/Chest: Denies cough, dyspnea or sputum Gastrointestinal Gastrointestinal: Denies abdominal pain, constipation, diarrhea, nausea or vomiting Genitourinary Genitourinary ED: Denies dysuria, hematuria or urinary frequency Musculoskeletal Musculoskeletal: Denies arthralgias, myalgias or neck pain Integumentary Reports rash; Denies abscess or Abrasions Neurologic Neurologic: Denies headache(s), paresthesias or weakness Psychiatric Psychiatric: Denies anxiety, depression, suicidal ideation or suicidal thoughts Endocrine Endocrinology: Denies polydipsia or polyuria EXAM Physical Exam Const Vital Signs: 09/07/23 17:53 09/07/23 17:56 Temperature 97.1 F L 97.1 F L Temperature Source Temporal Temporal Pulse Rate 89 89 Respiratory Rate 16 16 Blood Pressure 131/90 H 131/90 H Blood Pressure Mean 103 103 Pulse Ox 99 99 Positive well nourished and well developed General Appearance ED: well developed HEENT Reports moist mucous membranes trauma Eyes PERRL and EOMs intact bilaterally Resp normal respiratory effort Cardio regular rate and regular rhythm GI normal to inspection, nondistended, normoactive bowel sounds Extremity Extremity Narrative: Erythema and warmth noted to the right forearm on the volar surface in the lateral aspect extending from the elbow down. Is nontender. No crepitance. Does not appear to be cellulitis. Neuro oriented x3 Psych mental status grossly normal Skin Skin Narrative: Small similar lesion noted rash on the left forehead and left cheek without any vesicles. Mild erythema without tenderness. MDM MDM MDM Narrative Medical decision making narrative: After extended discussion with the patient she does not believe she had any contact with any insects or poison specifically however her states has been working all week out in the [employer] and has been exposed to poison yun several times. He states that his washes his close and could have Come in contact with poison yun/the oils this way. He does not get the rash from poison yun has never been symptomatic of it. Patient is already on a course of antibiotics without any relief and I do not believe that cellulitis I think it is probably a poison yun dermatitis and she was started on prednisone. I did offer lab work to differentiate further but she declines and states she will try the steroids and return precautions were discussed. Impression: 1. Contact dermatitis Lab Data Attestation: I reviewed the patient's lab results. Discharge Plan Triage Chief Complaint: Cellulitis ED Provider: William Mejias Dx/Rx/DC Orders Instructions: ED Poison Yun or Poison [place] Rash Prescriptions: New prednisone 10 mg tablet 10 mg PO DAILY Qty: 63 0RF Rx Instructions: 60 mg p.o. daily ?3 days, 50 mg p.o. daily ?3 days, 40 mg p.o. daily ?3 days, 30 mg p.o. daily ?3 days, 20 mg p.o. daily ?3 days, 10 mg p.o. daily ?3 days. No Action pantoprazole 40 mg tablet,delayed release (DR/EC) 40 mg PO DAILY Patient Comments: TAKE 1 TABLET BY MOUTH ONCE DAILY 30 MINUTES BEFORE EATING bupropion HCl 300 mg tablet extended release 24 hr 300 mg PO DAILY Patient Comments: TAKE 1 TABLET BY MOUTH ONCE DAILY bupropion HCl 150 mg tablet extended release 24 hr 150 mg PO DAILY varenicline 1 mg tablet 1 mg PO BID Primary Care Provider: NOT,DEFINED Referrals: NOT,DEFINED [Primary Care Provider] - Print Language: Citizen Of [place] Disposition Disposition: Home, Self Care
[2023-09-07] MEDS: predniSONE 20 MG Tablet 60 MG PO (18:32)
== END 2023-09-07 18:34 | disposition home or self-care (01) ==
PROVIDERS: Emergency Provider Student in an Organized Health Care Education/Training Program; Visit Provider Student in an Organized Health Care Education/Training Program
DX: L25.9 Unspecified contact dermatitis, unspecified cause (principal); F31.9 Bipolar disorder, unspecified; F41.9 Anxiety disorder, unspecified; Z87.891 Personal history of nicotine dependence; Z79.899 Other long term (current) drug therapy
CPT/HCPCS: 99282